=== PATIENT | male | born 1995 | race Caucasian/White ===

== ENCOUNTER → 2018-01-27 | Outpatient (CLI) | payer OTHER ==
[~2018-01-27] MED LIST: LIDOCAINE VISC 2% SOLN 15 ML UDC ONE
== END ==
LOC: WCC 12:31
PROVIDERS: ATTEND Family Medicine Adult Medicine
DX: S31.000A Unspecified open wound of lower back and pelvis without penetration into retroperitoneum, initial encounter (principal); S31.829A Unspecified open wound of left buttock, initial encounter; S51.001A Unspecified open wound of right elbow, initial encounter; S51.002A Unspecified open wound of left elbow, initial encounter; S81.801A Unspecified open wound, right lower leg, initial encounter; Y92.414 Local residential or business street as the place of occurrence of the external cause

== ENCOUNTER → 2018-02-03 | Outpatient (CLI) | payer OTHER | LOC: WCC 10:53 | PROVIDERS: ATTEND Family Medicine Adult Medicine | DX: S51.002A Unspecified open wound of left elbow, initial encounter (principal); S51.001A Unspecified open wound of right elbow, initial encounter; S31.000A Unspecified open wound of lower back and pelvis without penetration into retroperitoneum, initial encounter; S31.829A Unspecified open wound of left buttock, initial encounter; S81.801A Unspecified open wound, right lower leg, initial encounter; Y92.414 Local residential or business street as the place of occurrence of the external cause ==